=== PATIENT | male | born 1965 | race Caucasian/White ===

== ENCOUNTER 2024-10-06 09:41 | Outpatient (REF) | payer OTHER, SELFPAY | END 2024-10-06 09:42 | disposition home or self-care (01) | LOC: HO.HOSX 09:41 | PROVIDERS: Visit Provider Neurological Surgery | DX: Z13.89 Encounter for screening for other disorder (principal) ==

== ENCOUNTER 2024-10-06 09:41 | Outpatient (AMB) | payer OTHER, SELFPAY ==
--- NOTE | 2024-10-06 10:01 | A.SPINEOV_ITS ---
Intake Visit Reasons: sciatic pain/2 laminectomies/second opinion Intake Note: Mr. Tuttle is here today seeking a 2nd opinion regarding his sciatica pain. MRI done @ 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 He started to develop right leg pain more than a year ago. The pain radiates from the back into the buttock to the outside of his leg into the top of his foot. He was seen by a surgeon in [place] told him that no minimally invasive surgeries were possible anymore and that he needed a fusion. He denies back pain. The pain comes when he walks or stands were after long sitting. He denies numbness or weakness. The left side is unaffected. Still able to play golf. He is employed. The following conservative treatment options were tried without success antiinflammatories, tylenol, physical therapy, chiropractic, cortisone shots PMH: None Medications: Ibuprofen and Advil Allergies: None Social history: Employed. Nonsmoker. Physical Exam: Pleasant male. He is able to produce the symptoms with standing. Straight leg raise is negative. No motor or sensory deficits. Radiological Studies: MRI done at [facility] shows status post left L4-5 laminotomy but more importantly there is severe right L4-5 lateral recess stenosis due to medial facet hypertrophy and a disc herniation compressing the L5 nerve root. There are no signs of instability. Impression/Plan: This patient is suffering from a right L5 radiculopathy caused by L5 nerve root compression on the MRI. He definitely does not need a fusion. He needs to have a simple right L4-5 hemilaminotomy and possible diskectomy. He will call my office if he wants to proceed. Thank you for allowing me to participate in your patients care. total time spent was 50 minutes in counseling ,coordination of plan, personal review of imaging, surgical decision making and subsequent plan Hudson Márquez MD, PhD Spine Fellowship Trained Neurosurgeon Director, [facility] [place] [facility] Orders: Orders XR lumbar spine 4V min Today M48.062 - Spinal stenosis, lumbar region with neurogenic claudication Coding Level of Care Code New Pt Level 4 (49136) Diagnoses Lumbar stenosis with neurogenic claudication M48.062
== END 2024-10-06 10:44 | disposition home or self-care (01) ==
PROVIDERS: Visit Provider Neurological Surgery
DX: M48.062 Spinal stenosis, lumbar region with neurogenic claudication (principal)
CPT/HCPCS: 99204

== ENCOUNTER 2024-12-20 12:54 | Outpatient (AMB) | payer OTHER, SELFPAY ==
[2024-12-20 12:57] VITALS: BMI 25.1
--- NOTE | 2024-12-20 12:57 | A.SPINEOV_ITS ---
Vital Signs 12/20/24 12:57 Height 6 ft 1 in Weight 190 lb BMI 25.1 Intake Visit Reasons: discuss sx Intake Note: Mr. Tuttle is here today to Discuss Surgery. Storm Door Maker Required: No Allergies No Known Allergies Allergy (Verified 12/20/24 12:58) Physical Exam Vital Signs: BMI result Body Mass Index 25.1 Assessment & Plan Assessment & Plan (1) Lumbar stenosis with neurogenic claudication: Code(s): M48.062 - Spinal stenosis, lumbar region with neurogenic claudication Category: Medical Plan: Dear colleague, On December 20, 2024, I saw for a return visit Paolo Tuttle. He states that he had a flu in October with a lot of coughing and since then this severity off his right radiculopathy increased significantly. The pain radiates to the lateral part of his lower leg. He takes Tylenol and anti-inflammatory drugs which are not providing a lot of relief. He is developing GERD. On exam, straight leg raise is positive with radiating pain in an L5 dermatome on the right side. No motor or sensory deficits. A previous MRI shows severe L4-5 lateral recess stenosis and severe L5 foraminal stenosis due to degenerative changes and disc material. I would like to repeat an MRI of the lumbar spine to make sure that no further extrusion of disc material and to avoid surprise his during a surgical intervention. I did give him a surgical date for 02/01/2025. He will get preoperative clearance from his primary care physician. He will return to my clinic preoperatively to review the images. I spent 20 5 minutes in his consult for history and discussing plan of care. Hudson Márquez MD, PhD Spine Fellowship Trained Neurosurgeon Director, [facility] [place] [facility] Orders: Orders MR lumbar spine wo con Today M48.062 - Spinal stenosis, lumbar region with neurogenic claudication Coding Level of Care Code Est Pt Level 3 (33845) Diagnoses Lumbar stenosis with neurogenic claudication M48.062
--- OUTSIDE RECORDS SUMMARY | 2024-12-20 15:16 | XMS_ITS | Clinical Summary ---
Author Organization [facility] Address [address] [place] [address], [address] Care Team Providers Care Machine Room Operator Name Role Phone Unavailable Primary Care Provider Unavailabl e Social History Tobacco Use Types Packs/Day Years Used Date Smoking Tobacco: Never Assessed Sex and Gender Information Value Date Recorded Sex Assigned at Not on file Gender Identity Not on file Sexual Orientation Not on file Plan of Treatment Not on file
== END 2024-12-20 13:21 | disposition home or self-care (01) ==
LOC: HO.HNS 12:55
PROVIDERS: Visit Provider Neurological Surgery
DX: M48.062 Spinal stenosis, lumbar region with neurogenic claudication (principal)
CPT/HCPCS: 99213

== ENCOUNTER 2025-02-01 09:00 | Day surgery (SDC) | payer OTHER, SELFPAY ==
--- OUTSIDE RECORDS SUMMARY | 2024-12-29 13:27 | XMS_ITS | Clinical Summary ---
Author Organization [facility] Address [address] [place] [address] Phone Care Team Providers Care Auto Repair Shop Manager Name Role Phone Donovan Perez MD Primary Care Provider +1- [phone] Allergies No known active allergies Medications Medication Sig Dispensed Refills Start Date End Date Status LISINOPRIL ORAL Take by mouth. 5 mg daily Active OMEPRAZOLE ORAL Take by mouth. 20 mg daily Active POTASSIUM ORAL Take by mouth. Active glucosamine/chondr burroughs A sod (OSTEO BI-FLEX ORAL) Take by mouth. Active atorvastatin (LIPITOR) 10 MG tablet Take 10 mg by mouth daily. Active SUMAtriptan (IMITREX) 100 MG tablet take 1 tablet by oral route daily as needed for migraine headache,Instrmay repeat dose after 2 hours up to a maximum of 200 mg in 24 hours 01/25/2023 Active ASHWAGANDHA EXTRACT ORAL Take by mouth. Active ginkgo biloba 40 mg Tab Take by mouth. Active doxycycline hyclate 20 MG tablet Take 1 capsule by mouth 2 (two) times a day. 02/07/2024 Active metroNIDAZOLE (ROSADAN) 0.75 % gel Apply TOPICALLY a thin layer to face twice daily (AM & PM) 11/09/2023 Active ibuprofen (ADVIL,MOTRIN) 600 MG tabletIndications:Lum bar spondylosis,Lumbar stenosis with neurogenic claudication,Lumbar radiculopathy Take 1 tablet (600 mg total) by mouth every 8 (eight) hours as needed for pain (specific location in comments). Take with food and stop if you develop any stomach discomfort 45 tablet 3 11/21/2024 Active Active Problems No known active problems Encounters Date Type Department Care Team Description 12/20/2024 Transcribe Orders [facility] Radiology Department [address] [facility] [id number] [place] [address] Hudson Márquez MD Spinal stenosis, lumbar region, with neurogenic claudication (Primary Dx) 11/21/2024 2:00 PM EST Office Visit [address] [address] Viv Martino PA-C Lumbar spondylosis; Lumbar stenosis with neurogenic claudication; Lumbar radiculopathy from Last 3 Months Social History Tobacco Use Types Packs/Day Years Used Date Smoking Tobacco: Never Smokeless Tobacco: Never Tobacco Cessation:Counseling Given: Not Answered Education Answer Date Recorded Are you interested in more education? Not on tio e 01/23/2023 Are you concerned about learning? Not on file 01/23/2023 No 01/23/2023 No 01/23/2023 Digital Access Answer Date Recorded No 02/17/2023 No 02/17/2023 Reliable internet access at home? Not on file 02/17/2023 Device with a working camera? Not on file Sex and Gender Information Value Date Recorded Sex Assigned at Male 03/29/2021 8:59 AM EDT Gender Identity Male 03/29/2021 8:59 AM EDT Sexual Orientation Not on file Last Filed Vital Signs Vital Sign Reading Time Taken Comments Blood Pressure 112/73 11/21/2024 1:58 PM EST Pulse 84 11/21/2024 1:58 PM EST Temperature 36.6 ??C (97.9 ??F) 11/21/2024 1:58 PM ES T Respiratory Rate 18 03/13/2024 8:30 AM EDT Oxygen Saturation 98% 11/21/2024 1:58 PM EST Inhaled Oxygen Concentration - - Weight 95.7 kg (211 lb) 11/21/2024 1:58 PM EST Height 185.4 cm (6' 1 ) 11/21/2024 1:58 PM EST Body Mass Index 27.84 11/21/2024 1:58 PM EST Plan of Treatment Upcoming Encounters Date Type Department Care Team (Late st Contact Info) Description 12/20/2024 Procedure Pass [facility] [address] [place] [address] 01/19/2025 7:30 AM EDT Appointment [facility] [address] [place] [address] Hudson Márquez MD [address] [place] [address] 03/20/2025 2:30 PM EDT Office Visit [facility] [address] [place] [address] Viv Martino, SUSANNAH [address] [address] [email or web address] Health Maintenance Due Date Last Done Comments CREATININE LEVEL 1963 LIPID PANEL 1963 POTASSIUM LEVEL 1963 DEPRESSION SCREENING 1975 HEPATITIS C SCREENING 1981 HIV ONE-TIME SCREENING (18-65 YEARS) 1981 SCREENING FOR DIABETES 1998 COLOGUARD 02/10/2008 COLONOSCOPY 02/10/2008 COLORECTAL CANCER SCREENING 02/10/2008 FIT TEST 02/10/2008 FOBT 02/10/2008 SIGMOIDOSCOPY 02/10/2008 VIRTUAL COLONOSCOPY 02/10/2008 PNEUMOCOCCAL VACCINES (50+ years) (1 of 1 - PCV) 2013 ZOSTER VACCINES (2 of 2) 01/11/2020 11/16/2019 COVID-19 VACCINE (3 - 2023- season) 2024 11/09/2020, 10/19/2020 Adult Td,Tdap Booster 2028 02/08/2018 RSV VACCINE (1 - 1-dose 75+ series) 2038 INFLUENZA VACCINE Completed 07/01/2024, , 08/11/2021, Additional history exists SMOKING STATUS SCREENING (Once After 26 Yrs) Completed 11/21/2024 HEPATITIS A VACCINES Aged Out No long er eligible based on patient's age to complete this topic HIB VACCINES Aged Out No longer eligi ble based on patient's age to complete this topic MENINGOCOCCAL VACCINES (ACWY) Aged Out No longer eligible based on patient's age to complete this topic Medical Devices Not on file Care Teams Auto Repair Shop Manager Relationship Specialty Start Date End Date Donovan Perez MD [address] [address] PCP - General Internal Medicine 03/18/21 Additional Source Comments The information contained in this document represents components of the legal health record. It is not the complete legal health record.[facility]
--- OUTSIDE RECORDS SUMMARY | 2024-12-29 13:27 | XMS_ITS | Clinical Summary ---
Author Organization [facility] lin Address [address] [place] [address] Care Team Providers Care Information Technology Analyst Name Role Phone Donovan Perez MD Primary Care Provider Allergies No known active allergies Medications omeprazole (PriLOSEC) 20 MG capsule 01/12/2019 Active lisinopril (PRINIVIL,ZESTRIL) 20 MG tablet 12/27/2018 Active Social History Tobacco Use Types Packs/Day Years Used Date Smoking Tobacco: Never Smokeless Tobacco: Never Sex and Gender Information Value Date Recorded Sex Assigned at Not on file Legal Sex Male 11:17 PM EDT Gender Identity Not on file Sexual Orientation Not on file Last Filed Vital Signs Vital Sign Reading Time Taken Comments Blood Pressure 140/88 01/18/2019 2:23 PM EDT Pulse 83 01/18/2019 2:23 PM EDT Temperature 36.7 ??C (98 ??F) 01/18/2019 2:23 PM EDT Respiratory Rate 18 01/18/2019 2:23 PM EDT Oxygen Saturation 99% 01/18/2019 2:23 PM EDT Inhaled Oxygen Concentration - - Weight - - Height - - Body Mass Index - - Plan of Treatment Health Maintenance Due Date Last Done Comments Colorectal Cancer: COLONOSCO PY Screening every 10 yrs (or Modifier) 1963 Depression: Screening Annual ly using PHQ-2/9 in Adults 18 yrs or above (or HM Modifier)([facility]) 1981 Hepatitis C Virus Infection in Adolescents and Adults: Screening (or Modifier) ([facility]) 1981 SDOH Screening Reminder: Nadia lopez for all adults ([facility]) 1981 Tobacco Smoking Cessation: i n Adults excluding Women: Behavioral and Pharmacotherapy Interventions ([facility]) 1981 DTaP/Tdap/Td Vaccines ([facility]) (1 - Tdap) 1982 Lipid Screening: Every 5 yrs for Men aged 35+ (or HM Modifier) ([facility]) 1999 Colorectal Cancer Screening 45 -75 Yrs (or HM Modifier) 02/10/2008 Colorectal Cancer: FLEXIBLE SIGMOIDOSCOPY Screening every 5 yrs 02/10/2008 Colorectal Cancer: Fecal Immunochemical Test (FIT) Annually [facility] 02/10/2008 Colorectal Cancer: High-sens itivity gFOBT Screening Annually [facility] 02/10/2008 Colorectal Cancer: Stool Col oguard Screening every 3 yrs 02/10/2008 Colorectal Cancer:CT Colonog stephanie Screening every 5 yrs 02/10/2008 Zoster/Shingles Vaccine Seri es Screening: Adults aged 18+ yrs (or HM Modifiers)([facility]) (1 of 2) 2013 Flu Vaccination: Yearly for ages 18mos through 64 years (or Modifier)([facility]) 04/27/2024 COVID-19 Vaccine Screening: Initial Series and Booster Status ([facility]) ( - 2023-25 season) 2024 RSV Vaccines (1 - 1-dose 75+ series) 2038 Pneumococcal Vaccination Scr eening: Pts 0-19 & 19-49 yrs of age ([facility]) Aged Out No longer eligible based on patient's age to complete this topic Medical Devices Not on file Insurance [facility] Care Teams Information Technology Analyst Relationship Specialty Start Date End Date Donovan Perez MD [address] [phone] PCP - Ship Purser 01/18/19
--- OUTSIDE RECORDS SUMMARY | 2024-12-29 13:27 | XMS_ITS | Encounter Summary ---
Author Organization [facility] Address [address] [place] [address] Phone Care Team Providers Care Software Administrator Name Role Phone Donovan Perez MD Primary Care Provider +1- [phone] Encounter Details Date Type Department Care Team (Late st Contact Info) Description 02/14/2024 Procedure Pass [address] [address] Social History Tobacco Use Types Packs/Day Years Used Date Smoking Tobacco: Never Smokeless Tobacco: Never Education Answer Date Recorded Are you interested [...] AM EDT Sexual Orientation Not on file documented as of this encounter Plan of Treatment Upcoming Encounters Date Type Department Care Team (Late st Contact Info) Description 12/20/2024 Procedure Pass [facility] [address] [place] [address] 01/19/2025 7:30 AM EDT Appointment [facility] [address] [place] [address] Hudson Márquez MD [address] [place] [address] 03/20/2025 2:30 PM EDT Office Visit [facility] [address] [place] [address] Viv Martino, PA-C [address] [place] [address] [email or web address] documented as of this encounter Visit Diagnoses Not on filedocumented in this encounter Care Teams Software Administrator Relationship Specialty Start Date End Date Donovan Perez MD [address] [place] [address] PCP - General Internal Medicine 03/18/21 documented as of this encounter Additional Source Comments The information contained in this document represents components of the legal health record. It is not the complete legal health record.[facility]
--- OUTSIDE RECORDS SUMMARY | 2024-12-29 13:27 | XMS_ITS | Clinical Summary ---
Author Organization [facility] Address [address] [place] [address], [address] Care Team Providers Care Lime Kiln Worker Name Role Phone Unavailable Primary Care Provider Unavailabl e Social History Tobacco Use Types Packs/Day Years Used Date Smoking Tobacco: Never Assessed Sex and Gender Information Value Date Recorded Sex Assigned at Not on file Gender Identity Not on file Sexual Orientation Not on file Plan of Treatment Not on file
--- OUTSIDE RECORDS SUMMARY | 2024-12-29 13:27 | XMS_ITS | Encounter Summary ---
Author Organization [facility] Address [address] [place] [address] Phone Care Team Providers Care Line Mover Name Role Phone Donovan Perez MD Primary Care Provider +1- [phone] Encounter Details Date Type Department Care Team (Late st Contact Info) Description 04/17/2021 Procedure Pass [facility] Radiology [address] [place] [address] Social History Tobacco Use Types Packs/Day Years Used Date Smoking Tobacco: Never Smokeless Tobacco: Never Sex and Gender Information Value Date Recorded Sex Assigned at Male 03/29/2021 8:59 AM EDT Gender Identity Male 03/29/2021 8:59 AM EDT Sexual Orientation Not on file documented as of this encounter Plan of Treatment Upcoming Encounters Date Type Department Care Team (Late Contact Info) Description 12/20/2024 Procedure Pass [facility] [address] [place] [address] 01/19/2025 7:30 AM EDT Appointment [facility] [address] [place] [address] Hudson Márquez MD [address] [place] [address] 03/20/2025 2:30 PM EDT Office Visit [facility] Multispecialty [address] [place] [address] Viv Martino, PARemiC [address] [place], [place] [address] [place] [address] [email or web address] documented as of this encounter Visit Diagnoses Not on filedocumented in this encounter Care Teams Line Mover Relationship Specialty Start Date End Date Donovan Perez MD [address] [place] [address] PCP - General Internal Medicine 03/18/21 documented as of this encounter Additional Source Comments The information contained in this document represents components of the legal health record. It is not the complete legal health record.[facility]
--- OUTSIDE RECORDS SUMMARY | 2024-12-29 13:27 | XMS_ITS | Encounter Summary ---
Author Organization [facility] Address [address] [place] [address] Phone Care Team Providers Care Tool Grinding Machine Operator Name Role Phone Donovan Perez MD Primary Care Provider +1- [phone] Encounter Details Date Type Department Care Team (Late st Contact Info) Description 04/02/2021 Procedure Pass [facility] [address] [place] [address] Social History Tobacco Use Types Packs/Day Years [...] st Contact Info) Description 12/20/2024 Procedure Pass [facility] [address] [place] [address] 01/19/2025 7:30 AM EDT Appointment [facility] [address] [place] [address] Hudson áMrquez MD [address] [place], [place] [id number] 03/20/2025 2:30 PM EDT Office Visit [facility] [address] [place] [address] GunnerViv simmons PA-C [address] [place] [address] [email or web address] documented as of this encounter Visit Diagnoses Not on filedocumented in this encounter Care Teams Tool Grinding Machine Operator Relationship Specialty Start Date End Date Donovan Perez MD [address] [place] [address] PCP - General Internal Medicine 03/18/21 documented as of this encounter Additional Source Comments The information contained in this document represents components of the legal health record. It is not the complete legal health record.[facility]
--- OUTSIDE RECORDS SUMMARY | 2024-12-29 13:27 | XMS_ITS | Encounter Summary ---
Author Organization [facility] Address [address] [address] Phone Care Team Providers Care Medical Supply Technician Name Role Phone Donovan Perez MD Primary Care Provider +1- [phone] Encounter Details Date Type Department Care Team (Late st Contact Info) Description 03/18/2021 Procedure Pass [facility] Radiology [address] [address] Social History Tobacco Use Types Packs/Day Years [...] st Contact Info) Description 12/20/2024 Procedure Pass [facility] [address] [place] [address] 01/19/2025 7:30 AM EDT Appointment [facility] [address] [place] [address] Hudson Márquez MD [address] [place] [address] 03/20/2025 2:30 PM EDT Office Visit [facility] [address] [place] [address] Viv Martino, PARemiC [address] [facility] [address] [place] [address] [email or web address] documented as of this encounter Visit Diagnoses Not on filedocumented in this encounter Care Teams Medical Supply Technician Relationship Specialty Start Date End Date Donovan Perez MD [address] [place] [address] PCP - General Internal Medicine 03/18/21 documented as of this encounter Additional Source Comments The information contained in this document represents components of the legal health record. It is not the complete legal health record.[facility]
--- OUTSIDE RECORDS SUMMARY | 2024-12-29 13:27 | XMS_ITS | Encounter Summary ---
Author Organization [facility] Address [address] [place] [address] Phone Care Team Providers Care Equine Manager Name Role Phone Donovan Perez MD Primary Care Provider +1- [phone] Encounter Details Date Type Department Care Team (Late st Contact Info) Description 02/04/2022 Procedure Pass [facility] [address] [place] [address] Social History Tobacco Use Types Packs/Day Years [...] st Contact Info) Description 12/20/2024 Procedure Pass [facility] [address] [place] [address] 01/19/2025 7:30 AM EDT Appointment [facility] [address] [place] [address] Hudson Márquez MD [address] [place], [place] [id number] 03/20/2025 2:30 PM EDT Office Visit [facility] Mult[facility]pecialty [address] [place] [address] GunnerViv simmons PA-C [address] [facility] [address] [place] [address] [email or web address] documented as of this encounter Visit Diagnoses Not on filedocumented in this encounter Care Teams Equine Manager Relationship Specialty Start Date End Date Donovan Perez MD [address] [place] [address] PCP - General Internal Medicine 03/18/21 documented as of this encounter Additional Source Comments The information contained in this document represents components of the legal health record. It is not the complete legal health record.[facility]
[2025-01-22 09:51] VITALS: BP 143/84; PULSE 70; RESP 16; O2SAT 98; BMI 27.3
--- NOTE | ~2025-02-01 | FL_ITS ---
EXAMINATION: FL GUIDANCE ONLY HISTORY: L4-5 decompression COMPARISON: None available. TECHNIQUE: Fluoroscopy time: Less than 1 minute. Cumulative Dose: 3.97 mGy. DAP: 0.835 mGym2 Images: 1. FINDINGS: A single fluoroscopic spot film of the lumbar spine in the lateral projection demonstrates a probe directed toward the L4-5 intervertebral disc space from a posterior approach. FL/FL guidance in OR IMPRESSION: Fluoroscopy during procedure. Please see procedure report for additional information. Electronically signed by: Diego Barrera MD 02/01/2025 01:15 PM EDT
--- NOTE | 2025-02-01 07:06 | MHC.SHP ---
Pre-Procedural Eval Section A - 24 Hr Update-Section A only Date of Service: 02/01/25 The patient is an INPATIENT: No Changes since office visit: No Cold of Flu in the past 2 weeks, No New Medical Problems, No Changes in Medication and No Patient answered all questions The patient has been examined within 24 hours of the surgical procedure. The History & Physical has been completed within 30 days and I have reviewed it.: No Section B - Complete if H&P > 30 days Chief Complaint: Spinal stenosis, lumbar region with neurogenic Allergies: Allergies Allergy/AdvReac Type Severity Reaction Status Date / Time No Known Allergies Allergy Verified 01/22/25 10:10 Review of Systems Sugical H&P ROS: Negative: Constitution, Cardiovascular, Respiratory, Neurological, Psychiatric, Hem-Onc, Allergic/Immunologic, Gastrointestinal, Genitourinary, Musculoskeletal, Integumentary, Endocrine and Eyes/Ears/Nose/Throat Exam Surgical H&P Exam: Normal: HEENT, Normal: Heart, Normal: Lungs, Normal: Extremities, Normal: Abdomen, Normal: Skin and Normal: Neurological (Awake alert oriented x3) Plan Diagnosis/Plan: Unchanged Right L4-5 hemilaminotomy and possible diskectomy Time Spent With Patient Time: Total time managing care of this patient today __ 5 __ minutes.
--- NOTE | 2025-02-01 07:07 | P.DS_ITS ---
DS: Providers Provider Date of Service: 02/01/25 Date of discharge: 02/01/25 Primary care physician: Nonstaff Physician Admitting clinician: Hudson Márquez DS: Diagnosis Discharge Diagnosis (1) Lumbar stenosis with neurogenic claudication: Status: Acute DS: Summary Time Attestation Discharge Coordination Time (in mins): 6 Quality: Safe Use of Opioids Does Pt have an Active Cancer Diagnosis on the Problem List?: No Quality: Stroke Does the patient have a stroke diagnosis?: No Physical Exam Vital Signs: Vital Signs: Last Vital Signs Pulse 70 01/22/25 09:51 Resp 16 01/22/25 09:51 BP 143/84 H 01/22/25 09:51 Pulse Ox 98 01/22/25 09:51 O2 Del Method Room Air 01/22/25 09:51 BMI result Body Mass Index 27.3 Discharge Plan Discharge Patient Disposition: Home, Self-Care Referrals: Physician,Nonstaff [Primary Care Provider] - 1 Week Discharge Medications: New oxycodone 5 mg tablet 5 mg PO Q4H PRN (Reason: pain) Qty: 20 0RF Rx Instructions: Partial Fill upon patient request. docusate sodium [Colace] 100 mg capsule 100 mg PO BID Qty: 20 0RF Continued sumatriptan succinate 100 mg tablet 100 mg PO DIRECTED omeprazole 20 mg capsule,delayed release(DR/EC) 20 mg PO DAILY ibuprofen 600 mg tablet 600 mg PO TID atorvastatin 10 mg Tablet 10 mg PO BEDTIME ginkgo biloba 40 mg Tablet 40 mg PO DAILY Rx Instructions: give with meal/snack lisinopril 5 mg Tablet 5 mg PO DAILY metronidazole [Rosadan] 0.75 % Gel 1 appl TOPICAL BID ashwagandha extract PO DAILY potassium ibuprofen-acetaminophen [Advil Dual Action] 125-250 mg Tablet 2 tab PO Q8H PRN (Reason: Pain) Discharge Orders: Discharge Order (Routine); Ordered 02/01/25 Ordered By: Bayron Jimenez Diet: Advance to usual diet Activity on Discharge: As tolerated Activity Restrictions/Additional Instructions: After your spinal surgery we ask you to observe the following restrictions/guidelines: Activity: It is normal to feel some discomfort as you increase your activity, but that will improve with time. We ask you avoid heavy lifting or acitivities that cause pain. As a general rule, 8lbs is a safe limit for lifting right after surgery. Walk as much as you feel comfortable but not to exhaustion. You will feel extra tired the first few days after surgery. Stay well hydrated. It is OK to walk up and down stairs You may return to driving when you are off narcotics (such as vicodin, oxycodone, dilaudid, etc), and you are back to normal functional capacity. If you have any concerns please check with office before driving. Return to work is specific to each patient and each surgery, so please speak with your doctor/PA at first follow up. Please bring paperwork such as FMLA at that time if you need it filled out. Medications: For optimum pain control, it is best to start with a combination of 500 mg of Tylenol every 4 hours with 600 mg of Motrin every 8 hours, and use narcotics as needed in between for breakthrough pain. We will give you a short supply of narcotics after surgery (usually one weeks worth). If you need more please call the office but do not use more than prescribed. You will need to give our office 48 hours notice if you need narcotics refilled and we do not fill narcotics on weekends or evenings. If you are on a narcotic, it is a good idea to take a stool softener such as colace or senna to avoid constipation If you take blood thinner such as aspirin, Plavix, Coumadin, Effient, Eliquis etc for conditions such as Afib, DVT, Pulmonary embolus, coronary disease, stents etc please speak with your surgeon about specific details as to when you can resume these medications. You can resume NSAIDs on post op day 1 (eg: Motrin, Naproxen, etc). Follow up: Please call the office, , after surgery to arrange a 3 week follow up for wound check. Wound Care: You may remove your dressing on the first day after surgery. ?You may ?leave open to air. Please do not remove the steri strips underneath. they will fall off on their own in one week. IT IS NORMAL FOR THE WOUND TO OOZE OR BE BLOODY FOR A FEW DAYS AFTER SURGERY. ?IF THIS HAPPENS JUST PLACE NEW DRESSING OVER IT TO AVOID STAINING CLOTHES. You may shower on post op day # 1 We ask that you do not let the water soak the wound. If it does get wet, just towel dry lightly. Please do not scrub your incision or place any type of chemical/ointment on the wound. No tub baths, pools or jacuzzis for one month. If you have any leaking or redness from your wound, or fevers, please call office Print Language: Ukrainian
[2025-02-01 09:16] VITALS: BMI 26.7
[2025-02-01 09:28] VITALS: BP 136/91; PULSE 83; RESP 16; TEMP 36.4; O2SAT 97
[2025-02-01] MEDS: Gabapentin 300 MG CAPSULE PO (09:32)
[2025-02-01] MEDS: methocarbamoL 750 MG TABLET PO (09:33)
[2025-02-01] MEDS: Lactated Ringers 1,000 ML 100 ML IVCONT (09:38)
--- NOTE | 2025-02-01 10:39 | MHC.SHP ---
Pre-Procedural Eval Section A - 24 Hr Update-Section A only Date of Service: 02/01/25 The patient is an INPATIENT: No Section B - Complete if H&P > 30 days Chief Complaint: Spinal stenosis, lumbar region with neurogenic Details of Present Illness: right lumbar radicuolpathy Allergies: Allergies Allergy/AdvReac Type Severity Reaction Status Date / Time No Known Allergies Allergy Verified 01/22/25 10:10 Review of Systems Sugical H&P ROS: Negative: Constitution, Cardiovascular, Respiratory, Neurological, Psychiatric, Hem-Onc, Allergic/Immunologic, Gastrointestinal, Genitourinary, Musculoskeletal, Integumentary, Endocrine and Eyes/Ears/Nose/Throat Exam Surgical H&P Exam: Normal: HEENT, Normal: Heart, Normal: Lungs, Normal: Extremities, Normal: Abdomen, Normal: Skin and Normal: Neurological (awake, alert) Plan Diagnosis/Plan: Unchanged I have reviewed the history and physical and performed a pertinent physical examination on my patient. No changes have occurred unless specified. right l4-5 decompression Time Spent With Patient Time: Total time managing care of this patient today _5___ minutes.
--- NOTE | 2025-02-01 10:50 | HO.ANESPROP2 ---
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 GERD: ppi controls GEOVANNI: CPAP QHS PMFSH Active Problems Active Problems: All Active Problems Lumbar stenosis with neurogenic claudication (Acute) Past Medical History Medical History (Updated 01/22/25 @ 10:24 by Keren Villareal RN) History of influenza GEOVANNI on CPAP Numbness GERD (gastroesophageal reflux disease) HLD (hyperlipidemia) HTN (hypertension) Lumbar radiculopathy Family History Family history of problems with anesthesia: No Surgical History Surgical History (Updated 01/22/25 @ 10:28 by Keren Villareal RN) History of esophagogastroduodenoscopy (EGD) (2023) Hx of colonoscopy (2023) Hx of bilateral inguinal hernia repair History of back surgery History of Problems with Anesthesia: No Social History Social History (Updated 01/22/25 @ 10:05 by Keren Villareal RN) Household Members: Spouse Housing: House Are you a primary long term acute care registered nurse to a significant other at home: No Do you presently have visiting nurse or other home services: No Comment: aware of trip hazard Patient Tobacco Use Status: Former Tobacco user Use of substances other than those prescribed or required for medical reasons: No Have you been hit, kicked, punched, or otherwise hurt by someone within the past year? If so, by whom?: No Are you DNR?: No Advance Directives: No Advance Directives Information Provided: Yes Advance Directives on File: No Poor oral hygiene: No Meds Allergies Allergy/AdvReac Type Severity Reaction Status Date / Time No Known Allergies Allergy Verified 01/22/25 10:10 Home Medications ?Medication ?Instructions ?Recorded ?Confirmed ?Last Taken ?Type ashwagandha extract PO DAILY 01/22/25 Unknown History atorvastatin 10 mg tablet 10 mg PO BEDTIME 01/22/25 01/22/25 Unknown History ginkgo biloba 40 mg tablet 40 mg PO DAILY 01/22/25 01/22/25 Unknown History ibuprofen 125 mg-acetaminophen 250 2 tab PO Q8H PRN Pain 01/22/25 01/22/25 Unknown History mg tablet (Advil Dual Action) ibuprofen 600 mg tablet 600 mg PO TID 01/22/25 01/22/25 Unknown History lisinopril 5 mg tablet 5 mg PO DAILY 01/22/25 01/22/25 Unknown History metronidazole 0.75 % topical gel 1 appl topical BID 01/22/25 01/22/25 Unknown History (Rosadan) omeprazole 20 mg capsule,delayed 20 mg PO DAILY 01/22/25 01/22/25 Unknown History release potassium 01/22/25 01/22/25 Unknown History sumatriptan succinate 100 mg tablet 100 mg PO DIRECTED 01/22/25 01/22/25 Unknown History Exam Height,Weight and Vital Signs: Height 6 ft 1 in Weight 93.8 kg Last Vital Signs Pulse 70 01/22/25 09:51 Resp 16 01/22/25 09:51 BP 143/84 H 01/22/25 09:51 Pulse Ox 98 01/22/25 09:51 O2 Del Method Room Air 01/22/25 09:51 Pertinent Lab Results Pertinent Lab Results: CBC and CMP 01/12/25 from outside facility [place] Narrative Narrative: EKG 12/2024 SR @ 63 Airway Mallampati Class: III TM Dist: >3cm Neck ROM: Full Loose/Missing/Broken Teeth: Yes (missing molar) Heart: RRR Lungs: CTAB Assessment and Plan Assessment Anesthesia Assessment: Anesthesia Plan Discussed and PAT Visit Final Anesthetic Review Family History of Problems with Anesthesia: No History of Problems with Anesthesia: No Documented by User: Jasmin Corrales DO 02/01/25 10:53 [facility] Past Medical History Medical History (Updated 01/22/25 @ 10:24 by Keren Villareal, RADHA) History of influenza GEOVANNI on CPAP Numbness GERD (gastroesophageal reflux disease) HLD (hyperlipidemia) HTN (hypertension) Lumbar radiculopathy Family History Family history of problems with anesthesia: No Surgical History Surgical History (Updated 01/22/25 @ 10:28 by Keren Villareal RN) History of esophagogastroduodenoscopy (EGD) (2023) Hx of colonoscopy (2023) Hx of bilateral inguinal hernia repair History of back surgery History of Problems with Anesthesia: No Social History Social History (Updated 01/22/25 @ 10:05 by Keren Villareal RN) Household Members: Spouse Housing: House Are you a primary long term acute care registered nurse to a significant other at home: No Do you presently have visiting nurse or other home services: No Comment: aware of trip hazard Patient Tobacco Use Status: Former Tobacco user Use of substances other than those prescribed or required for medical reasons: No Have you been hit, kicked, punched, or otherwise hurt by someone within the past year? If so, by whom?: No Are you DNR?: No Advance Directives: No Advance Directives Information Provided: Yes Advance Directives on File: No Poor oral hygiene: No Meds Allergies Allergy/AdvReac Type Severity Reaction Status Date / Time No Known Allergies Allergy Verified 01/22/25 10:10 Home Medications ?Medication ?Instructions ?Recorded ?Confirmed ?Last Taken ?Type ashwagandha extract PO DAILY 01/22/25 Unknown History atorvastatin 10 mg tablet 10 mg PO BEDTIME 01/22/25 01/22/25 Unknown History ginkgo biloba 40 mg tablet 40 mg PO DAILY 01/22/25 01/22/25 Unknown History ibuprofen 125 mg-acetaminophen 250 2 tab PO Q8H PRN Pain 01/22/25 01/22/25 Unknown History mg tablet (Advil Dual Action) ibuprofen 600 mg tablet 600 mg PO TID 01/22/25 01/22/25 Unknown History lisinopril 5 mg tablet 5 mg PO DAILY 01/22/25 01/22/25 Unknown History metronidazole 0.75 % topical gel 1 appl topical BID 01/22/25 01/22/25 Unknown History (Rosadan) omeprazole 20 mg capsule,delayed 20 mg PO DAILY 01/22/25 01/22/25 Unknown History release potassium 01/22/25 01/22/25 Unknown History sumatriptan succinate 100 mg tablet 100 mg PO DIRECTED 01/22/25 01/22/25 Unknown History Exam Exam Date and Time: 02/01/25 1050 Height,Weight and Vital Signs: Height 6 ft 1 in Weight 93.8 kg Last Vital Signs Pulse 70 04/28/25 09:51 Resp 16 01/22/25 09:51 BP 143/84 H 01/22/25 09:51 Pulse Ox 98 01/22/25 09:51 O2 Del Method Room Air 01/22/25 09:51 Vital Signs Pulse Rate 70 01/22/25 09:51 Respiratory Rate 16 01/22/25 09:51 Blood Pressure 143/84 H 01/22/25 09:51 Pulse Oximetry 98 01/22/25 09:51 Oxygen Delivery Method Room Air 01/22/25 09:51 Temperature 97.5 F 02/01/25 09:28 Pulse Rate 83 02/01/25 09:28 Respiratory Rate 16 02/01/25 09:28 Blood Pressure 136/91 H 02/01/25 09:28 Pulse Oximetry 97 02/01/25 09:28 Oxygen Delivery Method Room Air 02/01/25 09:28 Airway Mallampati Class: III TM Dist: >3cm Neck ROM: Full Loose/Missing/Broken Teeth: Yes (missing molars) Heart: S1S2 Assessment and Plan Assessment Anesthesia Assessment: Anesthesia Plan Discussed and Chart Reviewed Final Anesthetic Review Family History of Problems with Anesthesia: No History of Problems with Anesthesia: No NPO: Yes ASA Class: II Final Preanesthetic Review: No Changes in Pt Med Stat, Meds/Allgs Chart Reviewed, Consent Obtained/Reviewed and Anes Risks/Benef Reviewed Patient Risk: Low Procedure Risk: Intermediate Anesthetic Plan Anesthetic Plan: GA and Agree w/ Assess. and Plan Disposition: Standard PACU
[2025-02-01 13:16] VITALS: BP 115/73; PULSE 84; RESP 17; TEMP 36.2; O2SAT 95
--- NOTE | 2025-02-01 13:19 | P.OP_ITS ---
Operative Note Operative Note Date of Service: 02/01/25 Narrative: Preoperative Diagnosis: Right L4-5 spinal stenosis/lateral recess stenosis/neural foraminal stenosis Operation: Right L4-5 Laminotomy, Partial facetectomy and foraminotomy with use of microscope Consent Informed Consent was obtained for this operation. I have explained the nature, purpose and benefits of the operation. I have discussed the risks and benefit of the operation including possible complications or adverse events with patient/family. Alternative(s) were discussed with the patient with their relative benefits and risks as well as the consequences of not accepting the operation were included in obtaining consent. Surgeon: KASH OCASIO MD, PHD Procedure Assisted By: Bayron Ruiz Description of Procedure This patient is suffering from right L5 radiculopathy. An MRI shows severe medi al facet hypertrophy causing compression of the L5 nerve root. There is also a disc protrusion that may be adding to the compression. The patient was offered a decompression. The procedure complications were explained. The patient was consented. The patient was brought to the operating room and endotracheally intubated. The patient was turned in prone position on the Parth frame. Prep and drape was done followed by timeout. The Physician library services assistant provided access. A mid lumbar incision was made followed by release of the paravertebral muscle on the right side to expose the L4-5 lamina and facet joints. An intraoperative x-ray was obtained to confirm the correct level. The microscope was brought in. I took over the procedure. The high-speed drill was used to do a right L4-5 laminotomy until flavum ligament was reached. A #2 Kerrison was used to expand the laminotomy near flush to the pedicles and to include a partial facetectomy. The flavum ligament was opened and resected with a #3 Kerrison to decompress the underlying thecal sac. The flavum ligament was removed to decompress the lateral recess and the exiting L5 nerve root. The L5 nerve root was deviated medially due to the medial facet hypertrophy. A medial facetectomy was done to remove the bone laying over the L5 nerve root. The L5 nerve root was encased in scar tissue. The nerve hook was used to release the scar tissue. In this way I was also have a vision of the area under the thecal sac. I did feel a disc bulge but this was calcified. Therefore no diskectomy was done. A long nerve hook could be easily passed along the medial side of the pedicle as a sign of adequate decompression of the L5 nerve root. The microscope was removed. Hemostasis was done. The physician library services assistant close the Incision in 2 layers. Steri-Strips were used to approximate incision. An OpSite with Tegaderm was used to cover the incision. All sponge needle counts were correct. Patient was extubated and transported in stable is to recovery room. Anesthesia: General Estimated Blood Loss (ml): 20 Complications: None Duration of Surgery: Under 60 Minutes Postoperative Plan: Discharge to home
[2025-02-01 13:20] VITALS: BP 113/73; PULSE 82; RESP 16; O2SAT 95
[2025-02-01 13:25] VITALS: BP 135/86; PULSE 87; RESP 16; O2SAT 95
[2025-02-01 13:30] VITALS: BP 128/79; PULSE 86; RESP 16; O2SAT 95
[2025-02-01 13:44] VITALS: BP 140/91; PULSE 88; RESP 16; TEMP 36.1; O2SAT 96
== END 2025-02-01 14:08 | disposition home or self-care (01) ==
LOC: HO.SSS 09:00
PROVIDERS: Visit Provider Neurological Surgery
PROC: (CPT 63047; principal; 2025-02-01 09:20)
DX: M48.062 Spinal stenosis, lumbar region with neurogenic claudication (principal); M54.16 Radiculopathy, lumbar region; M79.604 Pain in right leg; K21.9 Gastro-esophageal reflux disease without esophagitis; Z79.1 Long term (current) use of non-steroidal anti-inflammatories (NSAID); Z79.899 Other long term (current) drug therapy; Z98.890 Other specified postprocedural states
CPT/HCPCS: 63047; J0131; J0690; J1100; J1885; J2250; J2405; J3010

== ENCOUNTER → 2025-02-01 09:00 | Outpatient (BNV) | payer OTHER, SELFPAY | PROVIDERS: Visit Provider Physician Assistant | DX: M48.062 Spinal stenosis, lumbar region with neurogenic claudication (principal) | CPT/HCPCS: 63047; 99499 ==

== ENCOUNTER 2025-02-22 14:02 | Outpatient (AMB) | payer OTHER, SELFPAY ==
--- OUTSIDE RECORDS SUMMARY | 2025-02-22 14:13 | XMS_ITS | Continuity of Care Document ---
Author Organization [facility] Address [address] [place] [address] Care Team Providers Care Cell Lead Name Role Phone Sherin So Primary Care Physician Encounter JOSEPH TOVAR [id number] Date(s): 02/18/25 - 02/18/25 [facility] [address] [place] [address]- us Discharge Disposition: Home or Self Care Encounter Type: Between Visit Allergies, Adverse Reactions, Alerts No Known Allergies Assessment and Plan Future Appointments Immunizations Given and Recorded Vaccine Date Status Refusal Reason influenza virus vaccine, inactivated 07/10/23 Give n SARS-CoV-2 (COVID-19) mRNA BNT-162b2 vax 11/09/20 Recorded SARS-CoV-2 (COVID-19) mRNA BNT-162b2 vax 10/19/20 Recorded influenza, unspecified formulation 1 07/01/20 Julio César rded zoster vaccine, inactivated 11/16/19 Recorded tetanus/diphtheria/pertussis, acel(Tdap) 02/08/18 Recorded 1Result Comment: SHAWS/STAR/OSCO Problem List Condition Confirmation Course Effective Dates Status H ealth Status Informant Bilateral shoulder bursitis Confirmed Active Daytime somnolence Confirmed 04/10/19 Active Decreased testosterone level Confirmed 04/26/20 Active Carotid artery disease Confirmed Active Disorder of carotid artery Confirmed 02/08/18 Active Disorder of left patellofemoral joint Confirmed 03/21/20 Active Impingement of both shoulders Confirmed Active Dysphagia Confirmed 04/10/19 Active Fatigue Confirmed 04/26/20 Active Foot pain Confirmed 10/26/19 Active Gastric polyps Confirmed Active Gastric ulcer Confirmed Active Gastroesophageal reflux disease Confirmed 10/06/12 Active Right hand pain Confirmed Active Hemorrhoids Confirmed 01/05/11 Active Left hip pain Confirmed Active Hyperlipidemia Confirmed Active Hypertensive disorder Confirmed 02/02/17 Active Bilateral impacted cerumen Confirmed Active Impingement syndrome of shoulder region Confirmed 04/26/20 Active Right lateral epicondylitis Confirmed Active Lower back pain Confirmed Active Schatzki's ring Confirmed Active Hypogonadism in male Confirmed Active Medial epicondylitis of both elbows Confirmed Active Melanocytic nevi of trunk Confirmed Active Migraine Confirmed Active Obstructive sleep apnea syndrome Confirmed 04/10/19 Active Osteoarthritis of first carpometacarpal (CMC) joint of one hand Confirmed Active Paresthesia Confirmed 04/10/19 Active Right hand paresthesia Confirmed Active Patellofemoral disorder Confirmed 03/21/20 Active Screening for colon cancer Confirmed Active Preventative health care Confirmed Active Plantar fasciitis Confirmed 01/28/17 Active Polyarthralgia Confirmed 04/11/20 Active Prediabetes Confirmed Active Raised antinuclear antibody Confirmed 04/26/20 Active Rosacea Confirmed Active Rotator cuff syndrome Confirmed 03/21/20 Active Screening for malignant neoplasm of colon Confirmed 04/11/13 Active Screening for malignant neoplasm of prostate Confirmed 11/20/13 Active Sleep apnea Confirmed Active Tear of medial meniscus of knee Confirmed 10/13/17 Active Tendinitis of flexor tendon of right hand Confirmed Active Urinary urgency Confirmed Active Vitamin D deficiency Confirmed 04/26/20 Active Procedures Procedure Date Related Diagnosis Body Site Status EGD (esophagogastroduodenosc opy) gastric outlet reduction 11/29/19 [facility] ed R knee meniscus 11/2017 Completed EGD (esophagogastroduodenosc opy) gastric outlet reduction 03/02/17 [facility] ed low back surgery 02/2016 Complete d Colonoscopy 1 07/11/13 Completed H/O: vasectomy 11/2009 Completed Hernia repair Completed R rotator cuff Completed 1Normal Social History Social History Type Response Tobacco Tobacco Use: Never t obacco user. Sex Male Sex Representation Male (finding) Patient Care team information Care Team Personnel Name: Sherin So Position: Mid-Level Provider - Auth Member Role: Primary Care Physician Address: [address] [place] [id number] [employer]: Name: Rhys Peace MD Position: Physician Member Role: Field Reporter Address: [address] [place] [id number] Telecom: Care Team Related Persons Name: ABRAM RAM Insurance Providers Guarantor name: NERI AUGUST [facility] Information #: 1 Payer: [facility] Member Number: NA Policy Number: NA Group Number: NA Payer Identifier: [id number]
--- NOTE | 2025-02-22 14:34 | A.SPINEOV_ITS ---
Intake Visit Reasons: 1st post op Intake Note: Mr. Tuttle is here today for his 1st post op. Creel Cleaner Required: No Allergies No Known Allergies Allergy (Verified 02/22/25 14:35) Assessment & Plan Assessment & Plan (1) Lumbar stenosis with neurogenic claudication: Code(s): M48.062 - Spinal stenosis, lumbar region with neurogenic claudication Category: Medical Plan Mr Tuttle is here for his 1st postoperative visit, status post right L4-5 laminotomy 3 weeks ago. Initially the pain did not go away after surgery, but about 2 weeks into the recovery it resolved. He has had no trouble with his wound and it has healed up nicely. He has started to re-engage with activities and is back at work. We discussed activity guidelines, restrictions and expectations after lumbar hemilaminotomy. At this point since he is doing so well we can see him back on an as-needed basis. Bayron Márquez MD, PhD [facility] Coding Level of Care Code Global (11053) Diagnoses Lumbar stenosis with neurogenic claudication M48.062
== END 2025-02-22 14:54 | disposition home or self-care (01) ==
LOC: HO.HNS 14:02
PROVIDERS: Visit Provider Physician Assistant
DX: M48.062 Spinal stenosis, lumbar region with neurogenic claudication (principal)
CPT/HCPCS: 99024

== ENCOUNTER 2025-04-23 14:25 | Outpatient (AMB) | payer OTHER, SELFPAY ==
--- NOTE | 2025-04-23 14:35 | A.SPINEOV_ITS ---
Intake Visit Reasons: pain after surgery Intake Note: Mr. Tuttle is here today c/o pain after surgery Atmospheric Scientist Required: No Allergies No Known Allergies Allergy (Verified 02/22/25 14:35) Assessment & Plan Assessment & Plan (1) Tendinopathy of gluteal region: Code(s): M67.959 - Unspecified disorder of synovium and tendon, unspecified thigh Category: Medical Plan Mr Tuttle comes back in today for follow-up. He underwent a right L4-5 decompression a few months back. He was doing great until about March 30 when he was playing pickleball and felt something pop or a sound like something broke and he felt immediate pain in his right buttock region. The pain is not radiating down his leg. It is really only there if he is sitting for too long and goes to stand up. When he gets walking it is okay and seems to be all right. He continues to be active but it does seem to bother him when he is sitting for any prolonged period of time. Based on his presentation, it sounds to me like this is a gluteal tendinopathy that he sustained when he was playing pickleball rather than a herniated disc. I am going to send him to physical therapy, I expect that should improve with time. Total amount of time spent in this visit was 20 minutes in discussion of symptoms, ordering physical therapy and subsequent plan of care Bayron Márquez MD,PhD [facility] Orders: Orders PT Evaluation and Treatment Today M67.959 - Unspecified disorder of synovium and tendon, unspecified thigh Coding Level of Care Code Est Pt Level 3 (50501) Diagnoses Tendinopathy of gluteal region M67.959
--- OUTSIDE RECORDS SUMMARY | 2025-04-23 15:07 | XMS_ITS | Clinical Summary ---
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 5 mg daily Active OMEPRAZOLE ORAL Take by mouth. 20 mg daily Active POTASSIUM ORAL Take by mouth. Active glucosamine/chond r burroughs A sod (OSTEO BI-FLEX ORAL) Take by mouth. A ctive atorvastatin (LIPITOR) 10 MG tablet Take 10 mg by mouth daily. Active SUMAtriptan (IMITREX) 100 MG tablet take 1 tablet by oral route daily as needed for migraine headache,Instr may repeat dose after 2 hours up to a maximum of 200 mg in 24 hours 3 Active ASHWAGANDHA EXTRACT ORAL Take by mouth. Ac tive ginkgo biloba 40 mg Tab Take by mouth. Activ e doxycycline hyclate 20 MG tablet Take 1 capsule by mouth 2 (two) times a day. 4 Active metroNIDAZOLE (ROSADAN) 0.75 % gel Apply TOPICALLY a thin layer to face twice daily (AM & PM) 4 Active ibuprofen (ADVIL,MOTRIN) 600 MG tabletIndications :Lumbar spondylosis,Lumba r stenosis with neurogenic claudication,Lumb ar radiculopathy Take 1 tablet (600 mg total) by mouth every 8 (eight) hours as needed for pain (specific location in comments). Take with food and stop if you develop any stomach discomfort 45 tablet 3 5 Active Active Problems No known active problems Social History Tobacco Use Types Packs/Day Years [...] Assigned at Male 03/29/2021 8:59 AM EDT Legal Sex Male 10:00 AM EDT Gender Identity Male 03/29/2021 8:59 AM EDT Sexual Orientation Not on file Last Filed Vital Signs Vital Sign Reading Time Taken Comments Blood Pressure 112/73 11/21/2024 1:58 PM EST Pulse 84 11/21/2024 1:58 PM EST Temperature 36.6 C (97.9 F) 11/21/2024 1:58 PM EST Respiratory Rate 18 03/13/2024 8:30 AM EDT Oxygen Saturation 98% 11/21/2024 1:58 PM EST Inhaled Oxygen Concentration - - Weight 95.7 kg (211 lb) 11/21/2024 1:58 PM EST Height 185.4 cm (6' 1 ) 11/21/2024 1:58 PM EST Body Mass Index 27.84 11/21/2024 1:58 PM EST Plan of Treatment Health Maintenance Due Date Last Done Comments CREATININE LEVEL 1963 LIPID PANEL 1963 POTASSIUM LEVEL 1963 DEPRESSION SCREENING 1975 HEPATITIS C SCREENING 1981 HIV ONE-TIME SCREENING (18-6 5 YEARS) 1981 SCREENING FOR DIABETES 1998 COLOGUARD 02/10/2008 COLONOSCOPY 02/10/2008 COLORECTAL CANCER SCREENING 02/10/2008 FIT TEST 02/10/2008 FOBT 02/10/2008 SIGMOIDOSCOPY 02/10/2008 VIRTUAL COLONOSCOPY 02/10/2008 PNEUMOCOCCAL VACCINES (50+ years) (1 of 1 - PCV) 2013 ZOSTER VACCINES (2 of 2) 01/11/2020 11/16/2019 COVID-19 VACCINE (3 - 2023-2 5 season) 2024 11/09/2020, 10/19/2020 Adult Td,Tdap Booster 2028 02/08/2018 RSV VACCINE (1 - 1-dose 75+ series) 2038 SMOKING STATUS SCREENING (On ce After 26 Yrs) Completed 11/21/2024 HEPATITIS A VACCINES Aged Out No long er eligible based on patient's age to complete this topic HIB VACCINES Aged Out No longer eligi ble based on patient's age to complete this topic MENINGOCOCCAL VACCINES (ACWY) Aged Out No longer eligible based on patient's age to complete this topic MENINGOCOCCAL VACCINES (B) Aged Out N o longer eligible based on patient's age to complete this topic Medical Devices Not on file Insurance [facility] [place] [address] [place] [address] POS Care Teams Helper Shear Operator Relationship Specialty Start Date End Date Donovan Perez MD [address] [place] [id number] PCP - General Internal Medicine 03/18/21 Additional Source Comments The information contained in this document represents components of the legal health record. It is not the complete legal health record.[facility]
--- OUTSIDE RECORDS SUMMARY | 2025-04-23 15:07 | XMS_ITS | Clinical Summary ---
Author Organization [facility] Address [address] [place] [address], [id number] Care Team Providers Care [place] Name Role Phone Unavailable Primary Care Provider Unavailabl e Social History Tobacco Use Types Packs/Day Years Used Date Smoking Tobacco: Never Assessed Sex and Gender Information Value Date Recorded Sex Assigned at Not on file Gender Identity Not on file Sexual Orientation Not on file Plan of Treatment Not on file
== END 2025-04-23 15:03 | disposition home or self-care (01) ==
LOC: HO.HNS 14:26
PROVIDERS: Visit Provider Physician Assistant
DX: M67.951 Unspecified disorder of synovium and tendon, right thigh (principal)
CPT/HCPCS: 99213